=== PATIENT | female | born 2000 | race African-American/Black ===

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

== ENCOUNTER 2020-01-19 23:34 | Emergency (ER) | payer BC ==
[2020-01-20] MEDS ORDERED: Acyclovir 200 mg Capsule ONE (00:14)
[2020-01-20] MEDS ORDERED: predniSONE 20 MG TAB ONE (00:14)
== END 2020-01-20 00:20 | disposition home or self-care (01) ==
LOC: MADERS 23:34
DX: G51.0 Bell's palsy (principal); F90.9 Attention-deficit hyperactivity disorder, unspecified type
CPT/HCPCS: 99284; J7512

== ENCOUNTER 2023-05-12 11:27 | Emergency (ER) | payer BC | END 2023-05-12 12:00 | disposition home or self-care (01) | LOC: MADERS 11:27 | DX: J06.9 Acute upper respiratory infection, unspecified (principal) | CPT/HCPCS: 99282 ==

== ENCOUNTER 2024-06-07 09:39 | Emergency (ER) | payer BC ==
[2024-06-07] MEDS ORDERED: Clindamycin 150 MG CAP ONE (10:19)
[2024-06-07] MEDS ORDERED: Ibuprofen 600 MG TAB ONE (10:20)
[2024-06-07] MEDS ORDERED: Acetaminophen 500 MG TAB ONE (10:20)
[2024-06-07 11:12] LABS: Pregnancy Test - Urine (BHCG) Negative (Negative); Pregu Control Background? CLEAR/WHITE (CLR/WHITE); Pregu Control Bar Appear? YES (CONTROL BAR); Specific Gravity 1.018 (1.002-1.036)
== END 2024-06-07 11:46 | disposition home or self-care (01) ==
LOC: MADERS 09:39
DX: L73.2 Hidradenitis suppurativa (principal)
CPT/HCPCS: 81025; 99283